=== PATIENT | male | born 1940 | race Caucasian/White ===

== ENCOUNTER 2017-05-20 21:59 | Emergency (ER) | payer MEDICARE ==
[~2017-05-20] VITALS: Ht 165.1 cm; Wt 76.4 kg
[2017-05-20] MEDS ORDERED: SERT100T12 PO (22:14)
[2017-05-20] MEDS ORDERED: DIAZ10 PO (22:14)
[2017-05-20] MEDS ORDERED: LEVO25TA9 PO (22:14)
[2017-05-20] MEDS ORDERED: ESOM20CA31 PO (22:14)
[2017-05-20] MEDS ORDERED: ONDA4 PO (22:14)
[2017-05-20] MEDS ORDERED: ACYC200C PO (22:14)
[2017-05-20] MEDS ORDERED: LOVA20 PO (22:14)
[2017-05-20] MEDS ORDERED: GUAI118S13 PO (22:14)
[2017-05-20] MEDS ORDERED: METF500T4 PO (22:14)
[2017-05-20] MEDS ORDERED: DONE10TA PO (22:14)
[2017-05-20] MEDS ORDERED: LIDO700A30 TP (22:14)
[2017-05-20] MEDS ORDERED: LOSA50TA37 PO (22:14)
[2017-05-20] MEDS ORDERED: DIPH-654 PO (22:14)
[2017-05-20 22:22] LABS: GLUCOSE,POINT OF CARE 95 MG/DL (70-110)
[2017-05-20] MEDS ORDERED: LORazepam 1 MG TABLET PO ONE (23:00)
[2017-05-20 23:15] VITALS: BP 154/71
== END 2017-05-20 23:43 | disposition home or self-care (01) ==
LOC: EMS 22:00
DX: F41.9 Anxiety disorder, unspecified (principal); E03.9 Hypothyroidism, unspecified; E78.00 Pure hypercholesterolemia, unspecified; I10 Essential (primary) hypertension; Z88.0 Allergy status to penicillin; Z79.899 Other long term (current) drug therapy
CPT/HCPCS: 82962; 99284